=== PATIENT | male | born 1930 | race Caucasian/White ===

== ENCOUNTER → 2016-11-15 | Emergency (ER) | payer MEDICARE, OTHER ==
[~2016-11-15] MED LIST: AMLO1TAB65 PO; AMYL1CAP; CLOP75TA2 PO; DOCU-25 PO; DUTA0.5C PO; ESOM40CA PO; IBUP-784 PO; LABE100T PO; LISI-603 PO; LOSA1TAB35 PO; NAPH15DR51; OMEG1CAP55 PO; OMEP20CA10 PO; PREG100C PO; ROSU10TA PO; SENN-18 PO; SITA1TAB2; TAMS0.4C34 PO; [UNRECOGNIZED DRUG - CODE] PO
--- NOTE | 2016-11-15 20:45 | NUR ---
[facility] AT 204
--- NOTE | 2016-11-16 07:58 | NUR ---
Unable to depart due to meditech error.
== END | disposition left against medical advice (07) ==
LOC: ER 20:35
DX: Z53.21 Procedure and treatment not carried out due to patient leaving prior to being seen by health care provider (principal)